=== PATIENT | male | born 1995 | race Caucasian/White ===

== ENCOUNTER 2018-02-04 10:07 | Emergency (ER) | payer OTHER ==
[~2018-02-04] VITALS: Ht 190.5 cm; Wt 84.8 kg
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
--- NOTE | 2018-02-04 10:12 | NUR ---
MD BRADEN AT BEDSIDE
--- NOTE | 2018-02-04 10:24 | NUR ---
PATIENT TO CT
--- NOTE | 2018-02-04 10:39 | NUR ---
PT IS BACK FROM CT
[2018-02-04 11:00] VITALS: BP 130/80
--- NOTE | 2018-02-04 11:01 | NUR ---
Patient discharged to home in stable condition. Written and verbal after care instructions given. Patient verbalizes understanding of instruction.
== END 2018-02-04 11:02 | disposition home or self-care (01) ==
LOC: ER 10:11
DX: S02.2XXA Fracture of nasal bones, initial encounter for closed fracture (principal); Y04.8XXA Assault by other bodily force, initial encounter; Y93.89 Activity, other specified; Y92.89 Other specified places as the place of occurrence of the external cause; Y99.8 Other external cause status
CPT/HCPCS: 70450; 70486; 99284; A6402; A6403; A4606; Z7610